=== PATIENT | male | born 1965 | race Caucasian/White ===

== ENCOUNTER 2017-08-08 17:20 | Emergency (ER) | payer SELFPAY ==
[2017-08-08 17:42] VITALS: BP 132/78
--- NOTE | 2017-08-08 17:56 | UC ---
Hip/Pelvis Pain - HPI Summary HPI Summary: : Sudden pain right upper leg when standing lifting garbage can 6 hours ago. Pain was severe and focused to medial right thumb approximately 2 inches caudad to inguinal ligament. Pain gone now. Reproducible with squatting. No oother complaints. - History Of Current Complaint Chief Complaint: UCLowerExtremity Stated Complaint: GROIN PAIN Time Seen by Provider: 08/08/17 17:25 Hx Obtained From: Patient Mechanism Of Injury: extending right leg Onset/Duration: Sudden Onset Severity Initially: Moderate Severity Currently: None Pain Intensity: 9 Character Of Pain: Sharp Aggravating Factor(s): Other - squat to stand Alleviating Factor(s): Rest, Position Associated Signs And Symptoms: Positive: Negative - Allergies/Home Medications Allergies/Adverse Reactions: Allergies Allergy/AdvReac Type Severity Reaction Status Date / Time metaxalone [From Skelaxin] Allergy flushing, Verified 08/08/17 17:44 vasodilation metformin Allergy lactic Verified 08/08/17 17:44 acidosis Home Medications: Home Medications Aspirin EC Low Dose* 1 tab PO DAILY 08/08/17 [History Confirmed 08/08/17] Atorvastatin* [Lipitor 20 MG*] 1 tab PO DAILY 08/08/17 [History Confirmed ] Dulaglutide [Trulicity] 1 inj SQ WEEKLY 08/08/17 [History Confirmed 08/08/17] Glimepiride 1 tab PO BID 08/08/17 [History Confirmed 08/08/17] Lisinopril TAB* [Prinivil TAB*] 5 mg PO DAILY 08/08/17 [History Confirmed ] PMH/Surg Hx/FS Hx/Imm Hx - Additional Past Medical History Additional PMH: hx dm; on lipid control. Previously Healthy: Yes Endocrine History: Diabetes - Surgical History Surgical History: Yes Surgery Procedure, Year, and Place: HERNIA, LEFT KN, RIGHT WR, - Family History Known Family History: Positive: None - Social History Occupation: Employed Full-time - maintenance Alcohol Use: Occasionally Substance Use Type: None Smoking Status (MU): Never Smoked Tobacco Type: Smokeless Tobacco - Immunization History Hx Tetanus, Diphtheria Vaccination: Yes Review of Systems Constitutional: Negative Skin: Negative Eyes: Negative ENT: Negative Respiratory: Negative Cardiovascular: Negative Gastrointestinal: Negative Genitourinary: Negative Motor: Negative Neurovascular: Negative Musculoskeletal: Negative, Other: - pain when standing from squat Neurological: Negative Psychological: Negative All Other Systems Reviewed And Are Negative: Yes Physical Exam - Summary Physical Exam Summary: comfortable lying supine. Triage Information Reviewed: Yes Appearance: Well-Appearing Vital Signs: Initial Vital Signs Temp 98.7 F 08/08/17 17:36 Pulse 97 08/08/17 17:36 Resp 15 08/08/17 17:36 BP 132/78 08/08/17 17:36 Pulse Ox 97 08/08/17 17:36 Vital Signs Reviewed: Yes Eye Exam: Normal ENT Exam: Normal Dental Exam: Normal Neck exam: Normal Neck: Positive: 1 Respiratory Exam: Normal Cardiovascular Exam: Normal Abdominal Exam: Normal Musculoskeletal Exam: Normal Musculoskeletal: Positive: Other: - examination of right upper leg: by palpation slight discomfort below inguinal ligament at a single spot; pain reproducible with squatting and standing through a range of motion. No pain once upright. Neurological Exam: Normal Psychological Exam: Normal Skin Exam: Normal Hip Injury Course/Dx - Course Course Of Treatment: MDM: discussed muscle strain; x ray to rule out something unusual like bony abnormality. X ray neg. Pain will be treated with rest, heat , ice, anti inflammatories, PE as needed with further evaluatioin by US or MRI as needed in the future. - Differential Dx/Diagnosis Differential Diagnosis/HQI/PQRI: Sciatica, Sprain, Strain Provider Diagnoses: Right leg muscle strain, medial thigh. No evidence of bony abnormality. Discharge - Discharge Plan Condition: Stable Disposition: HOME Patient Education Materials: Muscle Strain (ED) Referrals: Aundrea Smith MD [Primary Care Provider] - Additional Instructions: WE DISCUSSED: WARM MOIST HEAT IN THE MORNING; ICE TO AREA OF PAIN AFTER USE. ANTI-INFLAMMATORY MEDICATION OR TYLENOL FOR DISCOMFORT. RE CHECK IF YOU ARE NOT IMPROVED IN 3 WEEKS OR IF YOU HAVE INCREASED PAIN OR DISABILITY.
--- NOTE | 2017-08-08 19:03 | RAD ---
INDICATION: Right hip and thigh pain after squatting down COMPARISON: None TECHNIQUE: 3 views of the right hip were obtained. FINDINGS: The visualized bones of the right hip are well-corticated and properly aligned. The joint spaces are normal. There is no radiographic evidence of acute fracture or dislocation. IMPRESSION: Normal radiograph of the right hip and femur. If the patient's symptoms persist follow-up imaging is recommended.
== END 2017-08-08 19:29 | disposition home or self-care (01) ==
LOC: UCEAST 17:20
DX: S76.211A Strain of adductor muscle, fascia and tendon of right thigh, initial encounter (principal); X50.9XXA Other and unspecified overexertion or strenuous movements or postures, initial encounter; Y93.89 Activity, other specified; Y92.9 Unspecified place or not applicable; Z88.8 Allergy status to other drugs, medicaments and biological substances; E11.9 Type 2 diabetes mellitus without complications; Z79.84 Long term (current) use of oral hypoglycemic drugs; E78.9 Disorder of lipoprotein metabolism, unspecified
CPT/HCPCS: 99211; G0463

== ENCOUNTER 2018-08-01 12:15 | Emergency (ER) | payer BC ==
[2018-08-01 12:39] VITALS: BP 131/84
--- NOTE | 2018-08-01 12:56 | UC ---
Lower Extremity/Ankle HPI - HPI Summary HPI Summary: 53 yo male presents with LEFT big toe nail injury. He tells me that he is diabetic and has little feeling in his feet/toes. About a week ago he noticed that his left big toe nail was yellow and falling off. Doesn't remember hitting it or injuring his toe. Yesterday he was putting on his sock and it ripped the toenail almost completely off. He put a bandage on it and has been walking on it since. Today he had some time off and is requesting the nail be removed as it is barely hanging on and he is afraid it will rip and bleed. Denies fever, redness, swelling, or injury. - History of Current Complaint Chief Complaint: UCWounds Stated Complaint: TOE COMPLAINT Time Seen by Provider: 08/01/18 12:56 Hx Obtained From: Patient Onset/Duration: Gradual Onset Severity Initially: Mild Severity Currently: Mild Pain Intensity: 2 Pain Scale Used: 0-10 Numeric - Allergies/Home Medications Allergies/Adverse Reactions: Allergies Allergy/AdvReac Type Severity Reaction Status Date / Time metaxalone [From Skelaxin] Allergy flushing, Verified 08/01/18 12:39 vasodilation metformin Allergy lactic Verified 08/01/18 12:39 acidosis PMH/Surg Hx/FS Hx/Imm Hx - Additional Past Medical History Additional PMH: BPH Endocrine History: Diabetes, Dyslipidemia Cardiovascular History: Hypertension - Surgical History Surgical History: Yes Surgery Procedure, Year, and Place: HERNIA, LEFT KN, RIGHT WR, - Family History Known Family History: Positive: None - Social History Occupation: Employed Full-time Lives: With Family Alcohol Use: Occasionally Substance Use Type: None Smoking Status (MU): Never Smoked Tobacco Type: Smokeless Tobacco - Immunization History Hx Tetanus, Diphtheria Vaccination: Yes Review of Systems All Other Systems Reviewed And Are Negative: Yes Constitutional: Positive: Negative Skin: Positive: Other - Left great toenail avulsion Respiratory: Positive: Negative Cardiovascular: Positive: Negative Neurovascular: Positive: Negative Musculoskeletal: Positive: Negative Neurological: Positive: Negative Psychological: Positive: Negative Physical Exam - Summary Physical Exam Summary: GENERAL: NAD. WDWN. No pain distress. SKIN: LEFT GREAT TOE:Nail mostly avulsed. Lower left cuticle is the only place barely attached. No erythema, edema, drainage, or warmth to the toe. No open wounds. NECK: Supple. Nontender. No lymphadenopathy. CHEST: No accessory muscle use. Breathing comfortably and in no distress. CV: Pulses intact. Cap refill <2seconds NEURO: Alert. PSYCH: Age appropriate behavior. Triage Information Reviewed: Yes Vital Signs: Initial Vital Signs Temp 99.0 F 08/01/18 12:33 Pulse 101 08/01/18 12:33 Resp 16 08/01/18 12:33 BP 131/84 08/01/18 12:33 Pulse Ox 96 08/01/18 12:33 Vital Signs Reviewed: Yes Lower Extremity Course/Dx - Course Course Of Treatment: The procedure was explained to the pt and all questions were answered. A time out was performed, witnessed, and signed. 2% lidocaine was used as a digital block to the left great toe. Hemostats were used to gently pull the toenail with constant firm pressure. Nail was removed with ease and pt had no pain. Area was irrigated with 500mL NS. Dressed with xeroform, telfa, and gauze. Pt tolerated procedure well. Will start him on keflex for prophylactic infection. Advised to keep covered at all times until well healed - Differential Dx/Diagnosis Provider Diagnosis: Avulsed toenail Discharge - Sign-Out/Discharge Documenting (check all that apply): Patient Departure All imaging exams completed and their final reports reviewed: No Studies - Discharge Plan Condition: Stable Disposition: HOME Prescriptions: Cephalexin CAP* [Keflex CAP*] 500 mg PO TID #21 cap Patient Education Materials: Nail Removal (ED) Referrals: Aundrea Smith MD [Primary Care Provider] - Additional Instructions: If you develop a fever, shortness of breath, chest pain, new or worsening symptoms - please call your PCP or go to the ED. 1) Keep the dressing clean, dry, and intact for the next 2-3 days and then may remove and KEEP COVERED until well healed with a bandage. 2) If you notice redness, swelling, pain, or colored discharge - please be rechecked - Billing Disposition and Condition Condition: STABLE Disposition: Home
[2018-08-01] MEDS ORDERED: Lidocaine 2% PF * 5 ML VIAL INJ ONE (13:00)
== END 2018-08-01 13:48 | disposition home or self-care (01) ==
LOC: UCEAST 12:15
DX: S91.202A Unspecified open wound of left great toe with damage to nail, initial encounter (principal); E11.9 Type 2 diabetes mellitus without complications; I10 Essential (primary) hypertension; Z88.8 Allergy status to other drugs, medicaments and biological substances; W20.8XXA Other cause of strike by thrown, projected or falling object, initial encounter; Y92.9 Unspecified place or not applicable
CPT/HCPCS: 11730; 99212; G0463

== ENCOUNTER 2022-01-21 07:50 | Observation (INO) ==
[~2022-01-21 07:50] MED LIST: Buffered Lidocaine 1% SYRIN 1 ml INTRADERM ONE; HYDROmorphone 1 MG/1 ML SYRINGE IV PRN; Lactated Ringers 1000 ml BAG 1,000 ML IV SCH; Naloxone 0.4 mg VIAL 0.4 mg/ml 1 ml VIAL IV PRN; Ondansetron 4 mg VIAL 2 MG/ML 2 ml VIAL IV PRN; fentaNYL 100 mcg/2 ml 50 MCG/ML VIAL IV PRN
[2022-01-21] MEDS ORDERED: ceFAZolin 2 GM in NS PREMIX 2 GM/100 ML BAG IVPB ONE (08:38)
[2022-01-21] MEDS ORDERED: Midazolam 2 mg/2 ml VIAL 1 mg/ml 2 ml VIAL (2 mg) ONE (09:31)
[2022-01-21] MEDS ORDERED: Propofol 10 MG/ML 20 ML BTL ONE (09:31)
[2022-01-21] MEDS ORDERED: Rocuronium 50 mg VIAL 10 mg/ml 5 ml VIAL (50 mg) ONE (09:31)
[2022-01-21] MEDS ORDERED: Ondansetron 4 mg VIAL 2 MG/ML 2 ml VIAL ONE (09:31)
[2022-01-21] MEDS ORDERED: Lidocaine 2% PF 5 ML VIAL ONE (09:31)
[2022-01-21] MEDS ORDERED: fentaNYL 250 mcg/5 ml 50 MCG/ML 5 ml VIAL (250 MCG) ONE (09:31)
[2022-01-21] MEDS ORDERED: Dexamethasone IV 4 MG/ML VIAL 1 ml VIAL ONE (09:31)
[2022-01-21] MEDS ORDERED: Thrombin 5,000 UNITS 1 APPLIC KIT - topical use - TOPICAL ONE (09:36)
[2022-01-21] MEDS ORDERED: Lidocaine 1% w EPI 1:200,000 SDV 30 ML VIAL ONE (09:36)
[2022-01-21] MEDS ORDERED: Gelfoam Sponge SIZE 100 SPONGE ONE (09:37)
[2022-01-21] MEDS ORDERED: Acetaminophen IV 1 GM/100ML 1,000 MG/100 ML BAG IV ONE (10:24)
[2022-01-21] MEDS ORDERED: Ondansetron 4 mg VIAL 2 MG/ML 2 ml VIAL IV PRN (12:12)
[2022-01-21] MEDS ORDERED: HYDROcodone/ACETAMIN 5/325 mg TAB PO PRN (12:12)
[2022-01-21] MEDS ORDERED: Senna TAB 8.6 mg TAB PO PRN (12:15)
[2022-01-21] MEDS ORDERED: Morphine 2 MG/ML SYRINGE IV PRN (12:15)
[2022-01-21] MEDS ORDERED: Lactated Ringers 1000 ml BAG 1,000 ML IV SCH (13:00)
[2022-01-21] MEDS: Nicotine GUM 4MG FRUIT FLAVOR PO PRN ×2 (14:15→18:32)
[2022-01-21] MEDS ORDERED: CMCS: Glimepiride 2 mg TAB (NF) PO SCH (21:00)
[2022-01-22 07:40] VITALS: BP 131/85
[2022-01-22] MEDS ORDERED: SEMAGLUTIDE 7 MG PO SCH (09:00)
== END 2022-01-22 09:20 | disposition home or self-care (01) ==
LOC: OR 07:50 → SSU 07:50
PROVIDERS: ADMIT Neurological Surgery; ATTEND Neurological Surgery